=== PATIENT | male | born 1970 | race Caucasian/White ===

== ENCOUNTER → 2025-05-18 14:11 | Outpatient (BNVA) | payer BC, SELFPAY | PROVIDERS: Family Provider Nurse Practitioner Family; Visit Provider Student in an Organized Health Care Education/Training Program | DX: S82.201A Unspecified fracture of shaft of right tibia, initial encounter for closed fracture (principal); S82.101A Unspecified fracture of upper end of right tibia, initial encounter for closed fracture; W19.XXXA Unspecified fall, initial encounter | CPT/HCPCS: 73590 ==

== ENCOUNTER 2025-05-18 15:19 | Outpatient (CLI) | payer BC, SELFPAY | END 2025-05-18 15:20 | disposition home or self-care (01) | LOC: SPT 15:20 | PROVIDERS: Family Provider Nurse Practitioner Family; Visit Provider Student in an Organized Health Care Education/Training Program | DX: Z46.89 Encounter for fitting and adjustment of other specified devices (principal); S82.101D Unspecified fracture of upper end of right tibia, subsequent encounter for closed fracture with routine healing; X58.XXXD Exposure to other specified factors, subsequent encounter | CPT/HCPCS: L1832 ==

== ENCOUNTER → 2025-06-15 09:33 | Outpatient (BNVA) | payer BC, SELFPAY | PROVIDERS: Family Provider Nurse Practitioner Family; Visit Provider Student in an Organized Health Care Education/Training Program | DX: S82.101A Unspecified fracture of upper end of right tibia, initial encounter for closed fracture (principal); W20.8XXA Other cause of strike by thrown, projected or falling object, initial encounter | CPT/HCPCS: 73590 ==